=== PATIENT | female | born 1960 | race Caucasian/White ===

== ENCOUNTER → 2016-10-26 | Outpatient (CLI) | payer BC ==
[~2016-10-26] VITALS: Ht 157.5 cm; Wt 75.5 kg
[~2016-10-26] MED LIST: INHALER ASSIST DEVICE (Optichamber) MC ONE
== END ==
LOC: RC 12:59
PROVIDERS: ATTEND Family Medicine
DX: J45.909 Unspecified asthma, uncomplicated (principal)
CPT/HCPCS: 94060